=== PATIENT | male | born 1925 | race Caucasian/White ===

== ENCOUNTER 2016-02-21 11:52 | Outpatient (CLI) | END 2016-02-21 11:53 | disposition home or self-care (01) ==

== ENCOUNTER 2016-02-21 12:11 | Outpatient (CLI) | payer MEDICARE, OTHER | END 2016-02-21 12:12 | disposition home or self-care (01) | DX: J90 Pleural effusion, not elsewhere classified (principal); J81.1 Chronic pulmonary edema; I50.9 Heart failure, unspecified; R06.02 Shortness of breath ==

== ENCOUNTER 2016-03-06 15:58 | Outpatient (CLI) | payer MEDICARE, OTHER | END 2016-03-06 15:59 | disposition home or self-care (01) | DX: I50.9 Heart failure, unspecified (principal); R94.39 Abnormal result of other cardiovascular function study ==